=== PATIENT | male | born 1995 | race Hispanic/Latino ===

== ENCOUNTER 2025-02-21 14:53 | Day surgery (SDC) | payer BC, SELFPAY ==
[2025-02-21] VITALS (17 sets, daily range): BP systolic 119–143; BP diastolic 55–93; BMI 35.2
--- NOTE | 2025-02-21 09:12 | ED.GENMED ---
History of Present Illness
General
Chief Complaint: Withdrawal Symptoms
Source: patient
Exam Limitations: none
Time Seen by Provider: 02/21/25 09:00
History of Present Illness
History of Present Illness:
29-year-old male complaining of vague mid abdominal discomfort with nausea cramps. 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 Stopped drinking alcohol 3 to 4 days ago. Drinks a handle in about 3 days. No shakiness no hallucinations no
jitteriness. Feels much better now. Did have a bowel movement an hour ago.
Past History
Past History
ED Past Medical History: HTN and Other (Alcohol use)
Review of Systems
Review of Systems
All Other Systems: Not applicable
Constitutional: Denies fever
Respiratory: Reports no symptoms
Cardiac: Reports no symptoms
Phy Exam
Physical Exam
Physical Exam:
GENERAL: Alert and oriented in no apparent distress
EYE: Orbits normal.
NECK: Supple, no significant adenopathy.
ENT: Pharynx without erythema
CARDIAC: Regular rate and rhythm without any obvious murmurs.
LUNGS: Clear breath sounds,normal
ABDOMEN: Soft, mild vague mid abdominal tenderness. No rebound or guarding no mass or hernia.
NEUROLOGICAL: Alert and oriented , grossly non-focal
SKIN: Warm and dry, no rash or lesion, no discoloration, skin intact.
MUSCULOSKELETAL: No edema,no deformity.Good color
PSYCH: Normal and appropriate interaction.
Course
Orders/Labs/Results
Orders:
Orders
02/21/25 Breakfast
NPO
Allow oral meds: No
Allow clear liquids: No
02/21/25 09:04
ECG [Electrocardiogram (*1)] Urgent
Reason for Study: Tachycardia
EKG- Treatment ONCE
02/21/25 09:09
Alcohol Urgent
Basic Metabolic Panel Urgent
Complete Blood Count/With Diff Urgent
02/21/25 09:12
IV Insert/Care/Rem.- Treatment PRN
Urinalysis Reflex To Culture Urgent
02/21/25 09:13
CT Abd/Pel (IV only)-DH only Urgent
Comment:
Reason For Exam: Mid to lower abdominal pain
Lorazepam [Ativan] 1 mg PO NOW STA
02/21/25 09:15
Comprehensive Metabolic Panel Urgent
Lipase Urgent
02/21/25 10:00
0.9% Sodium Chloride 1000 ml [Nss] 1,000 ml Mvi, Adult [Multivitamin] 10 ml Thiamine Injection 100 mg IV 500 mls/hr
02/21/25 11:06
Enoxaparin Sodium [Lovenox] 30 mg SC OR ONE
02/21/25 11:08
Admit Patient As Directed
Co-Sign Provider:
Level of Care: Post Proc/Surg Recovery
Assign to:: Medical/Surgical
Physician / Group: Nena
Diagnosis: Acute appendicitis
Reason for Overnight Stay: Standard of Care
Code Status As Directed
Resuscitation Status: Full Code
HYDROmorphone [Dilaudid] 0.5 mg IV Q2HPRN PRN
Ketorolac [Toradol] 10 mg IV Q6HPRN PRN
Ondansetron Injectable [Zofran] 4 mg IV Q6HPRN PRN
Activity As Directed
Activity Level: Out of Bed-Early Mobility
Anti-embolism (LEANDRO) Hose As Directed
Type: Thigh high
Intake/ Output As Directed
Frequency: Per unit guidelines
Vital Signs As Directed
Frequency: Per unit guidelines
02/21/25 11:09
Pneumatic Compression Sleeves As Directed
Type: Knee high
PRN Pain Medication Management As Directed
May give lesser potent ordered pain med per pt: Yes
preference::
Protocol:: Medication orders for pain may be administered in a
manner that supports deferring to patient preference
when the pt is:
- Requesting an ordered lesser potent pain medication.
Least to most potent pain medications are defined
as: acetaminophen < NSAID < tramadol < opioids
(morphine, oxycodone, hydromorphone).
- Requesting a lesser dose of the same medication IF
ORDERED.
- Requesting a less intrusive route of administration
if both routes are prescribed by the provider (PO <
IV).
Rx Incentive Spirometry [RESP] Routine
Frequency: q1h while awake
# of times per hour: 10
DX Deep Vein Thrombosis Video Routine
02/21/25 12:00
Piperacillin/Tazo 3.375 Gram [Zosyn] 3.375 gram in 50 ml IV Q6H
02/21/25 18:00
Enoxaparin Sodium [Lovenox] 40 mg SC QPM
02/22/25 08:00
Cholecalciferol (Vitamin D3) [VITAMIN D3 (cholecalciferol)] 25 mcg PO DAILY
Rosuvastatin Calcium [Crestor] 5 mg PO DAILY
olmesartan 40 mg PO DAILY
omeprazole 40 mg PO DAILY
Abnormal Lab Results
02/21/25 02/21/25
09:09 09:15
Abs Immat Gran (auto) 0.1 H 10^3/uL
(0-0.05)
Absolute Neuts (auto) 8.7 H 10^3/uL
(1.4-6.5)
Absolute Lymphs (auto) 0.5 L 10^3/uL
(1.2-3.4)
Immature Gran % 0.6 H %
(0-0.5)
Neutrophils % 89.1 H %
(42.2-75.2)
Lymphocytes % 5.2 L %
(20.5-51.1)
Glucose 128 H mg/dl 130 H mg/dl
(70-99) (70-99)
Total Bilirubin 1.4 H mg/dl
(0.2-1.3)
ALT 69 H U/L
(0-50)
02/21/25 09:09
02/21/25 09:15
Vital Signs
Initial and Last Documented VS:
Initial Vital Signs
Temp Pulse Resp BP Pulse Ox
99.2 F 102 16 126/55 97
02/21/25 09:00 02/21/25 09:00 02/21/25 09:00 02/21/25 09:00 02/21/25 09:00
Last Documented Vital Signs
Temp Pulse Resp BP Pulse Ox
99.2 F 97 17 137/76 96
02/21/25 09:00 02/21/25 10:13 02/21/25 10:13 02/21/25 10:12 02/21/25 10:13
MDM/Problems Addressed
Differential Diagnosis Includes:
There may be a component of withdrawal to this patient however he clinically is in no distress no tremors no unusual anxiety or agitation. Symptoms seemed more abdominal. Will have an abdominal workup. Ativan for some possible early withdrawal we
will also get B cares involved.
*Radiology
Radiology exam reviewed: radiology read reviewed (Acute appendicitis)
*Pulse Oximetry
Patient hypoxic: no
*Critical Care Note
Total Time (30-74mins, 75-104mins- exclusive of procedures): Not Applicable
Update Note
Update Note:
Acute appendicitis by CT. Reexamined. Mild right lower quadrant tenderness. Referred to surgery. Patient is not clinically in florid withdrawal.
ED Attending Note
-
Portions of this chart may have been created with voice recognition software.� Occasional wrong word or��sound alike� substitutions may have occurred due to the inherent limitations of voice recognition software.
Discharge Plan
Departure
Patient Disposition: Admit
Date of Disposition: 02/21/25
Time of Disposition: 10:34
Presentation/result/management discussed w/ accepting MD/DO: Surgery
Discharge Problem:
Acute appendicitis, History of alcohol use disorder
Prescriptions:
No Action
Theragen Tablet
1 tab PO DAILY
omeprazole 40 mg Capsule,Delayed Release(Dr/Ec)
40 mg PO DAILY
milk thistle 150 mg Capsule
150 mg PO DAILY
olmesartan 40 mg Tablet
40 mg PO DAILY
rosuvastatin [Crestor] 5 mg Tablet
5 mg PO DAILY
cholecalciferol (vitamin D3) [Vitamin D3] 25 mcg (1,000 unit) Tablet
25 mcg PO DAILY
omega 3-zbt-xvd-fish oil [Fish Oil] 60-90-500 mg Capsule
1 cap PO DAILY
Referrals:
NONE,* [Family Provider] -
Interventions
Interventions:
*Risk Screen - Suicide Last Done: 02/21/25 09:00
*General Assessment Last Done: 02/21/25 09:00
*Neglect/Abuse Screening Last Done: 02/21/25 09:00
*ED- Fall Risk Assessment Last Done: 02/21/25 09:00
ED- Neurological Assessment Last Done: 02/21/25 09:06
ED-Psychological Assessment Last Done: 02/21/25 09:12
Discharge Date and Time
Print Language: YORUBA
[2025-02-21 09:18] LABS: % Basophils 0.4 % (0-2); % Eosinophils 0.5 % (0-6); % Immature Granulocytes 0.6 % (0-0.5); % Lymphocytes 5.2 % (20.5-51.1); % Monocytes 4.2 % (1.7-9.3); % Neutrophils 89.1 % (42.2-75.2); Absolute Eosinophils 0.1 10^3/uL (0-0.7); Absolute Immature Granulocytes 0.1 10^3/uL (0-0.05); Absolute Lymphocytes 0.5 10^3/uL (1.2-3.4); Absolute Monocytes 0.4 10^3/uL (0.1-0.6); Absolute Neutrophils 8.7 10^3/uL (1.4-6.5); Hematocrit 40.2 % (39.0-52.0); Mean Corp Hgb Conc. 34.8 g/dL (33.0-37.0); Mean Corpuscular Hgb 28.6 pg (27.0-31.0); Mean Corpuscular Volume 82.2 fL (80.0-94.0); Mean Platelet Volume 10.3 fL (7.4-10.4); Nucleated Red Blood Cells % 0 % (-); Platelet Count 192 10^3/uL (130-400); Red Blood Cell Count 4.89 10^6/uL (4.70-6.10); Red Cell Dist. Width 12.9 % (11.5-14.5); White Blood Cell Count 9.7 10^3/uL (4.8-10.8)
[2025-02-21] MEDS: ATIVAN 1 MG PO (09:18)
[2025-02-21 09:35] LABS: Blood Urea Nitrogen 12 mg/dl (9-20); Calcium 8.9 mg/dl (8.4-10.2); Carbon Dioxide 23 mmol/L (22-30); Chloride 102 mmol/L (98-107); Estimated Creatinine Clearance > 125 ml/min; Glucose 128 mg/dl (70-99); Potassium 3.6 mmol/L (3.5-5.1); Sodium 137 mmol/L (135-145); eGFR > 60.00
[2025-02-21 09:37] LABS: Alcohol None Detected
[2025-02-21 09:46] LABS: ALT (SGPT) 69 U/L (0-50); AST (SGOT) 41 U/L (17-59); Albumin 4.3 g/dl (3.5-5.0); Alkaline Phosphatase 85 U/L (38-126); Blood Urea Nitrogen 13 mg/dl (9-20); Calcium 8.7 mg/dl (8.4-10.2); Carbon Dioxide 22 mmol/L (22-30); Chloride 101 mmol/L (98-107); Estimated Creatinine Clearance > 125 ml/min; Glucose 130 mg/dl (70-99); Potassium 3.7 mmol/L (3.5-5.1); Sodium 137 mmol/L (135-145); Total Bilirubin 1.4 mg/dl (0.2-1.3); Total Protein 6.7 g/dl (6.3-8.2); eGFR > 60.00
[2025-02-21] MEDS: MULTIVITAMIN 1011 MG IV (09:54)
[2025-02-21] MEDS: MULTIVITAMIN 1011 ML IV (09:54)
[2025-02-21 10:59] LABS: Lipase 70 U/L (23-300)
--- NOTE | 2025-02-21 10:59 | CON.GS ---
Consultation
-
Date/Time Consultation Performed: 02/21/25
Requesting Provider: Wero
Performing Provider: Nena
Reason for Consultation: Acute appendicitis
Medical History
-
Chief Complaint: Abd pain
History of Present Illness:
29M with acute onset abd pain that began last ngiht, described as generalized and without radiation or migration. A/w anorexia. Denies f/c/v, endorses nausea. Pain has improved since presentation.
Past Medical History
Past Medical History: GERD, HTN and Hypercholesterolemia
Past Surgical History: Reviewed & Noncontributory
Social History
Alcohol: Daily
Personal: Single
Living: With Family
Employment: Employed
Family History
Family History: Reviewed & Noncontributory
Allergies / Home Medications
Allergy/AdvReac Type Severity Reaction Status Date / Time
No Known Allergies Allergy Verified 02/21/25 09:00
�Medication �Instructions �Recorded �Confirmed �Type
cholecalciferol (vitamin D3) 25 25 mcg PO DAILY 02/21/25 02/21/25 History
mcg (1,000 unit) tablet (Vitamin
D3)
milk thistle 150 mg capsule 150 mg PO DAILY 02/21/25 02/21/25 History
olmesartan 40 mg tablet 40 mg PO DAILY 02/21/25 02/21/25 History
omega 0-uae-pbv-fish oil 60 mg-90 1 cap PO DAILY 02/21/25 02/21/25 History
mg-500 mg capsule (Fish Oil)
omeprazole 40 mg capsule,delayed 40 mg PO DAILY 02/21/25 02/21/25 History
release
rosuvastatin 5 mg tablet (Crestor) 5 mg PO DAILY 02/21/25 02/21/25 History
therapeutic multivitamin 1 tab PO DAILY 02/21/25 02/21/25 History
Review of Systems
-
A 10 point review of systems was completed, and was negative except as per HPI.
Physical Exam
Vital Signs
Temp Pulse Resp BP Pulse Ox
99.2 F 97 17 137/76 96
02/21/25 09:00 02/21/25 10:13 02/21/25 10:13 02/21/25 10:12 02/21/25 10:13
02/20/25 02/21/25 02/22/25
06:59 06:59 06:59
Actual Weight 105 kg
Body Mass Index (BMI) 35.2
Lab Results
02/21/25 09:09
02/21/25 09:15
WBC 9.7 10^3/uL (4.8-10.8) 02/21/25 09:09
Hgb 14.0 g/dL (13.0-18.0) 02/21/25 09:09
Hct 40.2 % (39.0-52.0) 02/21/25 09:09
Plt Count 192 10^3/uL (130-400) 02/21/25 09:09
Abs Immat Gran (auto) 0.1 10^3/uL (0-0.05) H 02/21/25 09:09
Neutrophils % 89.1 % (42.2-75.2) H 02/21/25 09:09
Physical Exam
General: Well Developed, Well Nourished and No Apparent Distress
GI: Soft, Non Tender and Non Distended
Skin: Warm and Dry
Neuro: AO x 3
Psych: Calm
Data Reviewed
-
CT Scan: Image Personally Visualized and interpreted, Report Reviewed by me, Discussed with Physician, Discussed with Patient and Discussed with Family
Labs: Labs Reviewed by me, Discussed with Physician, Discussed with Patient and Discussed with Family
Assessment / Plan
-
29M with acute appendicitis
AFVSS, no ttp to RLQ
No leukocytosis, left shift present
CT with inflamed appearing appendix with surrounding fluid
His imaging is c/w appendicitis, however he has no RLQ ttp and no leukocytosis. Rascon score is 4 (unlikely appendicitis). He notes that he has hip replacement scheduled for next week. Presented options: home with PO abx, inpatient obs with IV
abx, vs surgery today. I think the best chance to proceed with his hip surgery next week is to proceed to OR now for suspected acute appendicitis, this will give best chance of being infection free and off abx by next week. I advised him regardless,
his orthopedic surgeon may feel it is safer to delay that procedure. Informed consent obtained. D/w pt and parents. All ?s answered.
Plan:
OCTOR for lap appy
IV abx
Lovenox ppx
NPO for now
[2025-02-21] MEDS: ZOSYN 50 IV (12:01)
--- NOTE | 2025-02-21 16:53 | W.IMMPOSTOP ---
Surgical Immed Post Op Note
-
Primary Surgeon: Nena
Assisting Surgeon: Wesley PGY1
Pre-op Diagnosis: Acute appendicitis
Post-op Diagnosis: Same
Procedure Performed: Laparoscopic appendectomy
Anesthesia Type: GETA
Specimen / Cultures: Appendix
Estimated Blood Loss: 5cc
Complications: None immediate
Operative Findings: Inflamed appendix with healthy base, clear serous reactive fluid suctioned, no pus, no perforation, no contamination
--- NOTE | 2025-02-21 16:59 | OR.RPT ---
Operative Report
Operative Report
Primary Surgeon: Nena
Assisting Surgeon: Bostonj PGY1
Pre-op Diagnosis: Acute appendicitis
Post-op Diagnosis: Same
Procedure Performed: Laparoscopic appendectomy
Anesthesia Type: GETA
Specimen / Cultures: Appendix
Estimated Blood Loss: 5cc
Complications: None immediate
Operative Findings: Inflamed appendix with healthy base, clear serous reactive fluid suctioned, no pus, no perforation, no contamination
Date of Surgery: 02/21/25
Indications: This 29M developed abdominal pain and on workup was found to have acute appendicitis. Laparoscopic appendectomy was elected.
Description of procedure: The patient was placed on the operating table in the supine position. General anesthesia was induced. A time-out was completed verifying correct patient, procedure, site, positioning, and special equipment prior to
beginning this procedure. An orogastric tube was placed. The abdomen was prepped and draped in the usual sterile fashion. A stab incision was made in left upper quadrant and the Veress needle was inserted. Proper position was confirmed by aspiration
and saline meniscus test. The abdomen was insufflated with carbon dioxide to a pressure of 12 mmHg. The patient tolerated insufflation well.
A 5mm optical trocar was then inserted at the left lower quadrant. The laparoscope was inserted and the abdomen inspected. No injuries from initial trocar placement or Veress needle insertion were noted. Additional trocars were then inserted in the
following locations: a 12-mm trocar at the umbilicus and a 5-mm trocar midline in the suprapubic space. The abdomen was inspected and no abnormalities were found. The table was placed in the Trendelenburg position with the right side up. The tip of
the appendix was gently grasped with an atraumatic grasper and retracted toward the patient�s feet and abdominal wall. Reactive fluid that was clear and sraw colored was suctioned from the right lower quadrant. This maneuver exposed the appendiceal
blood supply which was controlled with the voyant device. Following this, a laparoscopic linear cutting stapler with a 45mm mackay load was deployed and used to transect the appendix at its base. The appendix was placed in an endoscopic retrieval bag,
removed through the umbilical port, and passed off the table as a specimen.
We then turned our attention to the staple line, which was noted to be hemostatic. The umbilical trocar site was closed at the fascial level laparoscopically with 2-0 PDS under direct vision. Secondary trocars were removed under direct vision and
noted to be hemostatic. The laparoscope was withdrawn and the abdomen was allowed to collapse. The skin was closed with subcuticular sutures of 4-0 monocryl and topical skin adhesive. The orogastric tube was removed.
The patient tolerated the procedure well and was taken to the postanesthesia care unit in stable condition.
== END 2025-02-21 18:40 | disposition home or self-care (01) ==
LOC: SDS 14:53
PROVIDERS: ATTENDING PHYSICIAN Surgery; EMERGENCY PHYSICIAN Emergency Medicine
DX: K35.80 Unspecified acute appendicitis (principal)
CPT/HCPCS: 44970; 88304; 74177; 80048; 80053; 82077; 83690; 85025; 93005; 96365; 96375; 99285; C1776; Q9967